=== PATIENT | male | born 1930 | race Caucasian/White ===

== ENCOUNTER 2016-10-05 14:18 | Inpatient (IN) | payer MEDICARE, MEDICAID ==
[2016-10-05] MEDS ORDERED: IPRATROPIUM/ALBUTEROL (0.5MG/3MG) NEB INH ONE (14:49)
[2016-10-05] MEDS ORDERED: METHYLPREDNISOLONE PF 125MG/VIAL IVP ONE (14:49)
--- NOTE | 2016-10-05 14:51 | Emergency Department Record ---
History of Present Illness - General Chief Complaint: Shortness of breath Stated Complaint: SOB,WEAK Time Seen by Provider: 10/05/16 14:47 Source: Patient, RN notes reviewed - Related Data Home Medications Medication Instructions Recorded Confirmed Last Taken Albuterol Sulfate [Ventolin Hfa] 1 - 2 puff IH .EVERY 4-6 HOURS PRN 10/05/16 Unknown Allopurinol [Allopurinol] 300 mg PO DAILY 10/05/16 10/05/16 Unknown Aspirin [Aspirin EC] 325 mg PO DAILY 10/05/16 10/05/16 Unknown Donepezil HCl [Donepezil HCl] 5 mg PO QHS 10/05/16 10/05/16 Unknown Dutasteride [Dutasteride] 0.5 mg PO DAILY 10/05/16 10/05/16 Unknown Ezetimibe [Zetia] 10 mg PO DAILY 10/05/16 10/05/16 Unknown Furosemide [Furosemide] 40 mg PO DAILY 10/05/16 10/05/16 Unknown Levothyroxine Sodium [Synthroid] 75 mcg PO DAILY 10/05/16 10/05/16 Unknown Lisinopril [Zestril] 10 mg PO DAILY 10/05/16 10/05/16 Unknown Mirabegron [Myrbetriq] 50 mg PO DAILY 10/05/16 10/05/16 Unknown Paroxetine HCl [Paroxetine HCl] 20 mg PO DAILY 10/05/16 10/05/16 Unknown Simvastatin [Simvastatin] 40 mg PO DAILY 10/05/16 10/05/16 Unknown Tamsulosin HCl [Tamsulosin HCl] 0.4 mg PO DAILY 10/05/16 10/05/16 Unknown Allergies Allergy/AdvReac Type Severity Reaction Status Date / Time Penicillins Allergy ANAPHYLAXIS Verified 10/05/16 14:55 Medical Decision Making - Lab Data Result diagrams: 10/05/16 15:05 10/05/16 15:05 Disposition Clinical Impression: Bronchitis, COPD (chronic obstructive pulmonary disease) with acute bronchitis , Hypoxia Forms: Patient Portal Access
[2016-10-05 15:19] LABS: HEMATOCRIT 36.1 % (42.0-52.0); HEMOGLOBIN 10.9 gm/dl (14.0-18.0); MEAN CORPUSCULAR HEMOGLOBIN 31.4 pg (27-33); MEAN CORPUSCULAR HGB CONC 30.2 g/dl (32-36); PLATELET COUNT 156 K/uL (130-400); RED BLOOD COUNT 3.47 M/uL (4.40-5.70); RED CELL DISTRIBUTION WIDTH 13.5 % (11.5-14.5); WHITE BLOOD COUNT W/O DIFF 5.6 K/uL (4.2-12.2)
[2016-10-05 15:31] LABS: PLATELET ESTIMATE NORMAL (NORMAL)
[2016-10-05 15:33] LABS: ANION GAP 9.9 (7-16); BLOOD UREA NITROGEN 32 mg/dL (9-20); CARBON DIOXIDE 35.1 mmol/L (22-30); CREATININE 1.1 mg/dL (0.66-1.25); EST GLOMERULAR FILTRATION RATE > 60 ml/min; GLUCOSE,RANDOM 87 mg/dL (70-110)
[2016-10-05 15:35] LABS: INR 1.08; PARTIAL THROMBOPLASTIN TIME 28.9 SECONDS (24.5-39.1); PROTHROMBIN TIME (PATIENT) 12.2 SECONDS (9.5-12.1)
[2016-10-05 15:45] LABS: TROPONIN I 0.067 ng/mL (0.00-0.034)
--- NOTE | 2016-10-05 15:52 | Emergency Department Record ---
History of Present Illness - General Chief Complaint: Shortness of breath Stated Complaint: SOB,WEAK Time Seen by Provider: 10/05/16 14:47 Source: Patient, RN notes reviewed Mode of Arrival: Wheelchair - History of Present Illness Initial Comments: see previous chart. Patient was treated at [facility] for pneumonia and went to rehab and he was requiring oxygen and he went home on monday and they went to the wrong house with the oxygen and he finely got it yesterday. Breathing progressively worse over the last three days and coughing and he went to Dr. Sam's office today and sent to ED SOB with a low BP .Patient has dementia for 3 years and incontient of urine and stool. Patient is DNR Onset/Timin -: Days(s) Consistency: Constant Improves With: Nothing Worsens With: Nothing Context: Recent illness Associated Symptoms: Cough Treatments Prior to Arrival: None - Related Data Home Oxygen Therapy: Yes Home Oxygen Amount: 2 Liters Home Medications Medication Instructions Recorded Confirmed Last Taken Albuterol Sulfate [Ventolin Hfa] 1 - 2 puff IH .EVERY 4-6 HOURS PRN 10/05/16 Unknown Allopurinol [Allopurinol] 300 mg PO DAILY 10/05/16 10/05/16 Unknown Aspirin [Aspirin EC] 325 mg PO DAILY 10/05/16 10/05/16 Unknown Donepezil HCl [Donepezil HCl] 5 mg PO QHS 10/05/16 10/05/16 Unknown Dutasteride [Dutasteride] 0.5 mg PO DAILY 10/05/16 10/05/16 Unknown Ezetimibe [Zetia] 10 mg PO DAILY 10/05/16 10/05/16 Unknown Furosemide [Furosemide] 40 mg PO DAILY 10/05/16 10/05/16 Unknown Levothyroxine Sodium [Synthroid] 75 mcg PO DAILY 10/05/16 10/05/16 Unknown Lisinopril [Zestril] 10 mg PO DAILY 10/05/16 10/05/16 Unknown Mirabegron [Myrbetriq] 50 mg PO DAILY 10/05/16 10/05/16 Unknown Paroxetine HCl [Paroxetine HCl] 20 mg PO DAILY 10/05/16 10/05/16 Unknown Simvastatin [Simvastatin] 40 mg PO DAILY 03/15/17 03/15/17 Unknown Tamsulosin HCl [Tamsulosin HCl] 0.4 mg PO DAILY 10/05/16 10/05/16 Unknown Allergies Allergy/AdvReac Type Severity Reaction Status Date / Time Penicillins Allergy ANAPHYLAXIS Verified 10/05/16 14:55 Travel Screening - Travel/Exposure Within Last 30 Days Have you traveled within the last 30 days?: No Review of Systems Reviewed: No additional complaints except as noted below Constitutional: Reports: As per HPI. Denies: Chills, Fever, Malaise, Night sweats, Weakness, Weight change Eyes: Reports: As per HPI. Denies: Eye discharge, Eye pain, Photophobia, Vision change ENT: Reports: As per HPI, Congestion. Denies: Dental pain, Ear pain, Epistaxis , Hearing loss, Throat pain Respiratory: Reports: As per HPI, Cough. Denies: Dyspnea, Hemoptysis, Stridor, Wheezes Cardiovascular: Reports: As per HPI. Denies: Arrhythmia, Chest pain, Dyspnea on exertion, Edema, Murmurs, Orthopnea, Palpitations, Paroxysmal nocturnal dyspnea, Rheumatic Fever, Syncope Endocrine: Reports: As per HPI. Denies: Fatigue, Heat or cold intolerance, Polydipsia, Polyuria Gastrointestinal: Reports: As per HPI. Denies: Abdominal pain, Constipation, Diarrhea, Hematemesis, Hematochezia, Melena, Nausea, Vomiting Genitourinary: Reports: As per HPI. Denies: Dysuria, Frequency, Hematuria, Incontinence, Retention, Testicular pain, Testicular mass, Urgency Musculoskeletal: Reports: As per HPI. Denies: Arthralgia, Back pain, Gout, Joint swelling, Myalgia, Neck pain Skin: Reports: As per HPI. Denies: Bruising, Change in color, Change in hair/ nails, Lesions, Pruritus, Rash Neurological: Reports: As per HPI. Denies: Abnormal gait, Confusion, Headache, Numbness, Paresthesias, Seizure, Tingling, Tremors, Vertigo, Weakness Psychiatric: Reports: As per HPI. Denies: Anxiety, Auditory hallucinations, Depression, Homicidal thoughts, Suicidal thoughts, Visual hallucinations Hematological/Lymphatic: Reports: As per HPI. Denies: Anemia, Blood Clots, Easy bleeding, Easy bruising, Swollen glands Past Medical History - SOCIAL HISTORY Smoking Status: Former smoker Alcohol Use: None Drug Use: None - RESPIRATORY Hx Respiratory Disorders: Yes Hx Pneumonia: Yes - CARDIOVASCULAR Hx Cardio Disorders: Yes Hx Abnormal EKG: Yes Hx Edema: Yes - NEURO Hx Neuro Disorders: Yes Hx Dementia: Yes Hx TIA: Yes - GI Hx GI Disorders: No - Hx Genitourinary Disorders: Yes Hx Prostate Problems: Yes Comment:: incontinenet - ENDOCRINE Hx Endocrine Disorders: No - MUSCULOSKELETAL Hx Musculoskeletal Disorders: Yes Hx Arthritis: Yes - PSYCH Hx Psych Problems: No - HEMATOLOGY/ONCOLOGY Hx Hematology/Oncology Disorders: No Family Medical History Any Significant Family History?: No Physical Exam - General General Appearance: Alert, Moderate distress - Head Head exam: Normal inspection - Eye Eye exam: Normal appearance, PERRL Pupils: Normal accommodation - ENT ENT exam: Normal exam, Mucous membranes moist, Normal external ear exam, Normal orophraynx, TM's normal bilaterally Ear exam: Normal external inspection. negative: External canal tenderness Nasal Exam: Normal inspection. negative: Discharge, Sinus tenderness Mouth exam: Normal external inspection, Tongue normal Teeth exam: Normal inspection. negative: Dental caries Throat exam: Normal inspection. negative: Tonsillar erythema, Tonsillar exudate - Neck Neck exam: Normal inspection, Full ROM. negative: Tenderness - Respiratory Respiratory exam: Respiratory distress, Wheezes - Cardiovascular Cardiovascular Exam: Regular rate, Normal rhythm, Normal heart sounds - GI/Abdominal GI/Abdominal exam: Soft, Normal bowel sounds. negative: Tenderness - Rectal Rectal exam: Deferred - exam: Deferred - Extremities Extremities exam: Normal inspection, Full ROM, Normal capillary refill. negative: Tenderness - Back Back exam: Reports: Normal inspection, Full ROM. Denies: Muscle spasm, Rash noted, Tenderness - Neurological Neurological exam: Alert, Normal gait, Oriented X3, Reflexes normal - Psychiatric Psychiatric exam: Normal affect, Normal mood - Skin Skin exam: Dry, Intact, Normal color, Warm Course Vital Signs 10/05/16 10/05/16 14:43 14:59 Temperature 97.8 F Pulse Rate 88 94 H Respiratory 21 13 Rate Blood Pressure 87/57 Pulse Ox 88 L 96 - Reevaluation(s) Reevaluation #1: patient is doing better 10/05/16 16:00 10/05/16 16:59 Medical Decision Making - Lab Data Result diagrams: 10/05/16 15:05 10/05/16 15:05 Lab Results 10/05/16 10/05/16 10/05/16 Range/Units 15:05 15:05 15:05 WBC 5.6 (4.2-12.2) K/uL RBC 3.47 L (4.40-5.70) M/uL Hgb 10.9 L (14.0-18.0) gm/dl Hct 36.1 L (42.0-52.0) % MCV 104.0 H (81-97) fl MCH 31.4 (27-33) pg MCHC 30.2 L (32-36) g/dl RDW 13.5 (11.5-14.5) % Plt Count 156 (130-400) K/uL MPV 11.0 H (7.4-10.4) fl Neutrophils % 73.0 (47-80) % Lymphocytes % 12.0 L (16-45) % Monocytes % 13.0 H (0-9) % Eosinophils % 2.0 (0-6) % Basophils % Not Reportable Platelet Estimate Normal (NORMAL) RBC Morphology Normal PT 12.2 H (9.5-12.1) SECONDS INR 1.08 APTT 28.90 (24.5-39.1) SECONDS Sodium 144 (136-145) mmol/L Potassium 4.2 (3.5-5.1) mmol/L Chloride 99 (98-107) mmol/L Carbon Dioxide 35.1 H (22-30) mmol/L Anion Gap 9.9 (7-16) BUN 32 H (9-20) mg/dL Creatinine 1.1 (0.66-1.25) mg/dL Estimated GFR > 60 ml/min Random Glucose 87 (70-110) mg/dL Calcium 8.6 (8.5-10.1) mg/dL Disposition Clinical Impression: Bronchitis, COPD (chronic obstructive pulmonary disease) with acute bronchitis , Hypoxia Decision to Admit: Admit from ER Condition: (2) Stable Forms: Patient Portal Access
[2016-10-05] MEDS ORDERED: CEFTRIAXONE SODIUM 1 GM in 0.9 % SODIUM CHLORIDE 100ML 100 ML IVPB ONE (15:59)
[2016-10-05] MEDS ORDERED: AZITHROMYCIN 500 MG TABLET PO ONE (15:59)
[2016-10-05] MEDS ORDERED: 0.9 % SODIUM CHLORIDE 1000ML 1,000 ML IV ONE (16:59)
[2016-10-05] MEDS ORDERED: ALBUTEROL SULFATE (0.083%) 2.5 MG/3 ML NEB INH PRN (17:01)
[2016-10-05] MEDS ORDERED: METHYLPREDNISOLONE PF 125MG/VIAL IVP SCH (17:15)
[2016-10-05] MEDS ORDERED: ENOXAPARIN 40 MG/0.4 ML SYR SC SCH (17:15)
--- NOTE | 2016-10-05 18:20 | Emergency Department Record ---
History of Present Illness - General Chief Complaint: Shortness of breath Stated Complaint: SOB,WEAK Time Seen by Provider: 10/05/16 14:47 Source: Patient, RN notes reviewed Mode of Arrival: Wheelchair - History of Present Illness Onset/Timin -: Days(s) Consistency: Constant Improves With: Nothing Worsens With: Nothing Context: Recent illness Associated Symptoms: Cough Treatments Prior to Arrival: None - Related Data Home Oxygen Therapy: Yes Home Oxygen Amount: 2 Liters Home Medications Medication Instructions Recorded Confirmed Last Taken Albuterol Sulfate [Ventolin Hfa] 1 - 2 puff IH .EVERY 4-6 HOURS PRN 10/05/16 Unknown Allopurinol [Allopurinol] 300 mg PO DAILY 10/05/16 10/05/16 Unknown Aspirin [Aspirin EC] 325 mg PO DAILY 10/05/16 10/05/16 Unknown Donepezil HCl [Donepezil HCl] 5 mg PO QHS 10/05/16 10/05/16 Unknown Dutasteride [Dutasteride] 0.5 mg PO DAILY 10/05/16 10/05/16 Unknown Ezetimibe [Zetia] 10 mg PO DAILY 10/05/16 10/05/16 Unknown Furosemide [Furosemide] 40 mg PO DAILY 10/05/16 10/05/16 Unknown Levothyroxine Sodium [Synthroid] 75 mcg PO DAILY 10/05/16 10/05/16 Unknown Lisinopril [Zestril] 10 mg PO DAILY 10/05/16 10/05/16 Unknown Mirabegron [Myrbetriq] 50 mg PO DAILY 10/05/16 10/05/16 Unknown Paroxetine HCl [Paroxetine HCl] 20 mg PO DAILY 10/05/16 10/05/16 Unknown Simvastatin [Simvastatin] 40 mg PO DAILY 10/05/16 10/05/16 Unknown Tamsulosin HCl [Tamsulosin HCl] 0.4 mg PO DAILY 10/05/16 10/05/16 Unknown Allergies Allergy/AdvReac Type Severity Reaction Status Date / Time Penicillins Allergy ANAPHYLAXIS Verified 10/05/16 14:55 Travel Screening - Travel/Exposure Within Last 30 Days Have you traveled within the last 30 days?: No Review of Systems Constitutional: Reports: As per HPI. Denies: Chills, Fever, Malaise, Night sweats, Weakness, Weight change Eyes: Reports: As per HPI. Denies: Eye discharge, Eye pain, Photophobia, Vision change ENT: Reports: As per HPI, Congestion. Denies: Dental pain, Ear pain, Epistaxis , Hearing loss, Throat pain Respiratory: Reports: As per HPI, Cough. Denies: Dyspnea, Hemoptysis, Stridor, Wheezes Cardiovascular: Reports: As per HPI. Denies: Arrhythmia, Chest pain, Dyspnea on exertion, Edema, Murmurs, Orthopnea, Palpitations, Paroxysmal nocturnal dyspnea, Rheumatic Fever, Syncope Endocrine: Reports: As per HPI. Denies: Fatigue, Heat or cold intolerance, Polydipsia, Polyuria Gastrointestinal: Reports: As per HPI. Denies: Abdominal pain, Constipation, Diarrhea, Hematemesis, Hematochezia, Melena, Nausea, Vomiting Genitourinary: Reports: As per HPI. Denies: Dysuria, Frequency, Hematuria, Incontinence, Retention, Testicular pain, Testicular mass, Urgency Musculoskeletal: Reports: As per HPI. Denies: Arthralgia, Back pain, Gout, Joint swelling, Myalgia, Neck pain Skin: Reports: As per HPI. Denies: Bruising, Change in color, Change in hair/ nails, Lesions, Pruritus, Rash Neurological: Reports: As per HPI. Denies: Abnormal gait, Confusion, Headache, Numbness, Paresthesias, Seizure, Tingling, Tremors, Vertigo, Weakness Psychiatric: Reports: As per HPI. Denies: Anxiety, Auditory hallucinations, Depression, Homicidal thoughts, Suicidal thoughts, Visual hallucinations Hematological/Lymphatic: Reports: As per HPI. Denies: Anemia, Blood Clots, Easy bleeding, Easy bruising, Swollen glands Past Medical History - SOCIAL HISTORY Smoking Status: Former smoker Alcohol Use: None Drug Use: None - RESPIRATORY Hx Respiratory Disorders: Yes Hx Pneumonia: Yes - CARDIOVASCULAR Hx Cardio Disorders: Yes Hx Abnormal EKG: Yes Hx Edema: Yes - NEURO Hx Neuro Disorders: Yes Hx Dementia: Yes Hx TIA: Yes - GI Hx GI Disorders: No - Hx Genitourinary Disorders: Yes Hx Prostate Problems: Yes Comment:: incontinenet - ENDOCRINE Hx Endocrine Disorders: No - MUSCULOSKELETAL Hx Musculoskeletal Disorders: Yes Hx Arthritis: Yes - PSYCH Hx Psych Problems: No - HEMATOLOGY/ONCOLOGY Hx Hematology/Oncology Disorders: No Family Medical History Any Significant Family History?: No Course Vital Signs 10/05/16 10/05/16 14:43 14:59 Temperature 97.8 F Pulse Rate 88 94 H Respiratory 21 13 Rate Blood Pressure 87/57 Pulse Ox 88 L 96 Medical Decision Making - Lab Data Result diagrams: 10/05/16 15:05 10/05/16 15:05 Lab Results 10/05/16 10/05/16 10/05/16 Range/Units 15:05 15:05 15:05 WBC 5.6 (4.2-12.2) K/uL RBC 3.47 L (4.40-5.70) M/uL Hgb 10.9 L (14.0-18.0) gm/dl Hct 36.1 L (42.0-52.0) % MCV 104.0 H (81-97) fl MCH 31.4 (27-33) pg MCHC 30.2 L (32-36) g/dl RDW 13.5 (11.5-14.5) % Plt Count 156 (130-400) K/uL MPV 11.0 H (7.4-10.4) fl Neutrophils % 73.0 (47-80) % Lymphocytes % 12.0 L (16-45) % Monocytes % 13.0 H (0-9) % Eosinophils % 2.0 (0-6) % Basophils % Not Reportable Platelet Estimate Normal (NORMAL) RBC Morphology Normal PT 12.2 H (9.5-12.1) SECONDS INR 1.08 APTT 28.90 (24.5-39.1) SECONDS Sodium 144 (136-145) mmol/L Potassium 4.2 (3.5-5.1) mmol/L Chloride 99 (98-107) mmol/L Carbon Dioxide 35.1 H (22-30) mmol/L Anion Gap 9.9 (7-16) BUN 32 H (9-20) mg/dL Creatinine 1.1 (0.66-1.25) mg/dL Estimated GFR > 60 ml/min Random Glucose 87 (70-110) mg/dL Calcium 8.6 (8.5-10.1) mg/dL CK-MB (CK-2) 1.0 (0-6) ug/L Troponin I 0.067 H (0.00-0.034) ng/mL NT-Pro-B Natriuret Pep (<450) pg/mL 10/05/16 Range/Units 15:05 WBC (4.2-12.2) K/uL RBC (4.40-5.70) M/uL Hgb (14.0-18.0) gm/dl Hct (42.0-52.0) % MCV (81-97) fl MCH (27-33) pg MCHC (32-36) g/dl RDW (11.5-14.5) % Plt Count (130-400) K/uL MPV (7.4-10.4) fl Neutrophils % (47-80) % Lymphocytes % (16-45) % Monocytes % (0-9) % Eosinophils % (0-6) % Basophils % Platelet Estimate (NORMAL) RBC Morphology PT (9.5-12.1) SECONDS INR APTT (24.5-39.1) SECONDS Sodium (136-145) mmol/L Potassium (3.5-5.1) mmol/L Chloride (98-107) mmol/L Carbon Dioxide (22-30) mmol/L Anion Gap (7-16) BUN (9-20) mg/dL Creatinine (0.66-1.25) mg/dL Estimated GFR ml/min Random Glucose (70-110) mg/dL Calcium (8.5-10.1) mg/dL CK-MB (CK-2) (0-6) ug/L Troponin I (0.00-0.034) ng/mL NT-Pro-B Natriuret Pep 7320.00 H (<450) pg/mL Disposition Clinical Impression: Bronchitis, COPD (chronic obstructive pulmonary disease) with acute bronchitis , Hypoxia Atrial Fibrillation Qualifiers: Atrial fibrillation type: unspecified Qualified Code(s): I48.91 - Unspecified atrial fibrillation Decision to Admit: Admit from ER Condition: (2) Stable Forms: Patient Portal Access
[2016-10-05] MEDS: IPRATROPIUM/ALBUTEROL (0.5MG/3MG) NEB INH SCH ×2 (18:58→22:18)
[2016-10-05] MEDS: CEFTRIAXONE SODIUM 1 GM in 0.9 % SODIUM CHLORIDE 100ML 100 ML IVPB SCH (20:41)
[2016-10-05] MEDS: DONEPEZIL HCL 5 MG TABLET PO SCH (22:55)
[2016-10-06] MEDS: CEFTRIAXONE SODIUM 1 GM in 0.9 % SODIUM CHLORIDE 100ML 100 ML IVPB SCH ×2 (05:31→17:33)
[2016-10-06] MEDS: IPRATROPIUM/ALBUTEROL (0.5MG/3MG) NEB INH SCH ×5 (05:45→22:05)
[2016-10-06] MEDS: METHYLPREDNISOLONE PF 125MG/VIAL IVP SCH ×3 (06:54→23:35)
--- NOTE | 2016-10-06 07:30 | RADIOLOGY REPORT ---
EXAM: PORTABLE CHEST HISTORY: DIFFICULTY BREATHING. TECHNIQUE: A portable semi-erect view of the chest was obtained. Comparison: None. FINDINGS: Cardiomegaly with atheromatous change of the thoracic aorta. Sternotomy wires. The lungs are clear. No pneumothorax. IMPRESSION: CARDIOMEGALY. THE LUNGS ARE CLEAR. JOB NUMBER: [id number] MTDD
[2016-10-06] MEDS: ALLOPURINOL 100 MG TAB PO SCH (10:22)
[2016-10-06] MEDS: EZETIMIBE 10 MG TABLET PO SCH (10:23)
[2016-10-06] MEDS: TAMSULOSIN HCL 0.4 MG CAP.ER.24H PO SCH (10:23)
[2016-10-06] MEDS: AZITHROMYCIN 500 MG TABLET PO SCH (10:24)
[2016-10-06] MEDS: ENOXAPARIN 30 MG/0.3 ML SYR SQ SCH (10:24)
[2016-10-06] MEDS: LEVOTHYROXINE SODIUM 75 MCG TABLET PO SCH (10:24)
[2016-10-06] MEDS ORDERED: 0.9 % SODIUM CHLORIDE 1000ML 1,000 ML IV ONE (12:49)
[2016-10-06] MEDS: DUTASTERIDE 0.5 MG PO SCH (13:15)
[2016-10-06] MEDS: MYRBETRIQ 50 MG PO SCH (13:16)
[2016-10-06] MEDS: ASPIRIN 325 MG TAB ENTERIC-COATED PO SCH (13:42)
[2016-10-06] MEDS ORDERED: ZINC OXIDE 28.35 GM TUBE TOP PRN (15:41)
--- NOTE | 2016-10-06 16:57 | History and Physical Report ---
DATE OF ADMISSION: 10/06/16 at 12:45 p.m. CHIEF COMPLAINT: DYSPNEA. HISTORY OF PRESENT ILLNESS: This 86-year-old male presented to Dr. Sam's office because of follow-up from rehab. He was discharged from the rehab center on Monday. Four days prior, he was very short of breath. There was some confusion on the oxygen. He was on oxygen at the rehab doing fairly well. According to the family, when the outpatient oxygen was ordered the jose had the wrong address, could not find his address to deliver it. It took two days to get the oxygen and he progressively got worse. He was more short of breath, memory issues have been worse, and he is weaker. He was in the wheelchair moaning, confused, and his dementia is much worse. He was brought over to the Emergency Department by cecilia from Dr. Sam's office and I evaluated him and he was wheezing in all lung juan. He was having a flare-up of his COPD. He also has underlying congestive heart failure. His chest x-ray did not show any signs of pulmonary vascular congestion but he did have cardiomegaly and he has an aortic valve replacement, which was done many years ago. He has a pig valve. The patient was admitted to the hospital for bronchitis, COPD exacerbation, atrial fibrillation new onset, severe weakness, and dementia. MEDICATIONS ON ADMISSION: Aspirin 325 every day Allopurinol 300 mg every day Ventolin two puffs every four hours prn Lasix 40 mg every day Zetia 10 mg every day Dutasteride 500 mg every day Aricept 5 mg every h.s. Simvastatin 40 mg every h.s. Paxil 20 mg every day Myrbetriq 50 mg every day Lisinopril 10 mg every day Levothyroxine 75 mcg every day Flomax 0.4 mg every day ALLERGIES: PENICILLIN. FAMILY/PSYCHOSOCIAL HISTORY: Unremarkable. He is a former smoker. No alcohol or drug use. REVIEW OF SYSTEMS: HEENT: Was all obtained from the family. He was doing much better at the rehab center. He was actually riding a stationary bicycle towards the end of his rehab treatment program but he progressively has gotten worse over the last four days that he has been home. He is wheezing. He has congestion and coughing. Moaning. The family is having a hard time taking care of him. CARDIOVASCULAR: Denies chest pain but it is hard to get a history from him. He is short of breath and wheezing. RESPIRATORY: He has COPD and CHF in the past. He is an ex-smoker. Sleep disorders requiring oxygen and he was without oxygen for the last two of the four days he was home. GASTROINTESTINAL: No nausea, vomiting, diarrhea, or black stools. GENITOURINARY: He is incontinent of urine and stool. He wears a Depends. MUSCULOSKELETAL: He has arthritis. NEUROLOGIC: He has had a stroke in the past in 2010. It was a TIA- type stroke. He has dementia for approximately four years. ENDOCRINE: No diabetes. He has hypothyroidism. INTEGUMENT: No rash, change in moles, or yellow skin. PHYSICAL EXAMINATION: GENERAL: Height is 5'2". Weight is 245 lb. VITAL SIGNS: Temperature is 98.1. Pulse is 75, irregular. Blood pressure is 119/ 59. Respiratory rate is 20. Pulse ox is 91% on 2 liters of nasal cannula. He is very short of breath if he moves around. HEENT: Pupils equal, round, and reactive to light and accommodation. Extraocular muscles are intact. Throat dry. Mucous membranes; no lesions noted. NECK: Neck is supple. No jugular venous distention. No hepatojugular reflux. No carotid bruits. Thyroid smooth. CARDIOVASCULAR: Irregular rate and rhythm with a murmur. He has an aortic valve replacement, pig valve. RESPIRATORY: Wheezing in all lung juan. ABDOMEN: Soft and distended but no pain on palpation. No rebound or rigidity. EXTREMITIES: No pitting edema. JOINTS: He has tenderness when you move his joints. He does sit up with two- person assist. RECTAL: Deferred. BREAST EXAM: Normal male breasts. GENITALIA: Normal male genitalia. NEUROLOGICAL EXAM: Cranial nerves II through XII are grossly intact. Sensation is intact bilaterally. He is moving all four extremities. Deep tendon reflexes are equal bilaterally. He has dementia and is confused. Unable to obtain history from mental status. He is disoriented to time and place but not person. He is not alert but lethargic. SKIN: No rashes or ulcerations noted. His diaper area is reddened from being incontinent of urine and stool. IMPRESSION: 1. ACUTE BRONCHITIS. 2. EXACERBATION OF COPD. 3. NEW ONSET ATRIAL FIBRILLATION. 4. INCREASED TROPONIN-I IN THE INDETERMINATE RANGE. 5. HISTORY OF AORTIC VALVE REPLACEMENT, PIG VALVE, MANY YEARS AGO. 6. HISTORY OF CORONARY ARTERY BYPASS GRAFTING, TRIPLE BYPASS MANY YEARS AGO. 7. HYPOTHYROIDISM. 8. HYPERCHOLESTEROLEMIA. 9. CORONARY ARTERY DISEASE. 10. ARTHRITIS. 11. HYPERTENSION. 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 13. HISTORY OF GOUT. 14. DEPRESSION. PLAN: IV Rocephin 1 gm every 12 hours. Azithromycin 500 mg orally every day. Breathing treatments with DuoNeb every four hours while awake. Albuterol 2 hours prn. Solu-Medrol 60 mg every 8 hours. Continue his daily medications. Lovenox for subcut prophylaxis, however, I am very concerned about putting him on anticoagulants for his new onset atrial fibrillation because of his comorbid condition. I think this might be a high risk for complications. Ortiz Lima D.O. Date & Time JOB NUMBER: [id number] MTDD
[2016-10-06] MEDS ORDERED: FUROSEMIDE IV 20MG/2ML VIAL IVP ONE (16:58)
[2016-10-06] MEDS: DONEPEZIL HCL 5 MG TABLET PO SCH (22:22)
[2016-10-07] MEDS: CEFTRIAXONE SODIUM 1 GM in 0.9 % SODIUM CHLORIDE 100ML 100 ML IVPB SCH ×2 (05:02→19:46)
[2016-10-07] MEDS: IPRATROPIUM/ALBUTEROL (0.5MG/3MG) NEB INH SCH ×5 (05:59→22:06)
[2016-10-07] MEDS: METHYLPREDNISOLONE PF 125MG/VIAL IVP SCH ×2 (06:05→17:20)
[2016-10-07] MEDS: LEVOTHYROXINE SODIUM 75 MCG TABLET PO SCH (06:05)
--- NOTE | 2016-10-07 09:46 | Rehab Evaluation ---
Patient Information - Patient Information Diagnosis: Bronchitis, COPD Ordered Treatment: PT Evaluate and Treat Status: Initial Evaluation History: Detail (The patient pesented to ED on 10/05/16 with complaints of difficulty breathing. The patient was previously at [facility] for treatment for pneumonia and for Rehab. The patient was discharged from [facility] last Monday. The patient was admitted to [facility] inpatient floor on 10/05/16.) Past Medical/Surgical Hx: PAST MEDICAL/SURGICAL HISTORY Past Surgical History valve replacement bypass knee x2 hip PMH - Respiratory Hx Respiratory Disorders Yes Hx Pneumonia Yes PMH - Cardiovascular Hx Cardiovascular Disorders Yes Hx Abnormal EKG Yes Hx Edema Yes Hx Transient Ischemic Attacks Yes (TIA) PMH - Neuro Hx Neurological Disorders Yes Hx Dementia Yes Hx Transient Ischemic Attacks Yes (TIA) PMH - GI Hx Gastrointestinal Disorders No PMH - Hx Genitourinary Disorders Yes Hx Prostate Problems Yes Comment: incontinenet PMH - Endocrine Hx Endocrine Disorders No PMH - Musculoskeletal Hx Musculoskeletal Disorders Yes Hx Arthritis Yes PMH - Psych Hx Psychiatric Problems No PMH - Hematology/Oncology Hx Hematology/Oncology No Disorders Premorbid Status: Detail (The patient was ambulatory with wheeled walker per his report.) Social History: Detail (The patient lives with daughter in 1 story home with a ramped enterance per his report. The bathroom has a shower stall with a seat, standard toilet and grab bars. The patient has a wheeled walker and O2 at home. The patient states his daughter assisted him with ADL's.) Precautions: [place], Fall - Time With Patient Total Time Spent With Patient (Min): 30 Treatment Procedures: Detail (Initial Evaluation) Subjective Information - Subjective Information Per Patient (The patient had no complaints of pain. The patient exhibited incoherent, mumbling speech at times.) Objective Data - Mental Status Patient Orientation: Person (The patient stated he was in a hospital, knew month of his birthday but not year or age. The patient did not know current month or year.) - ROM Within normal limits (The patient's LE AROM is WNL. Refer to OT note for UE AROM.) - Strength/Tone Not within normal limits (The patient's LE strength was functional, the patient did not understand use of resistance for manual muscle testing. Refer to OT for UE strength grades.) - Bed Mobility Independent (The patient achieved supine to sit transfer indepedently.) - Transfers Needs Assist (The patient required supervision for safety only with sit to stand. The patient moves impulsively.) - Balance Balance Sitting: Good Balance Standing: Fair (The patient was able to stand without support, pulling down his pants. Supervision for safety was required.) - Gait Detail (The patient ambulated with wheeled walker and 2 L of O2 from bed to chair, 5 feetx1 with supervision for safety. The patient exhibited wheezy breathing throughout activity ie: ambulation, transfers, strength testing etc.) Therapy Assessment - Therapy Assessment Detail (The patient requires supervision for safety with mobility and ambulation. The patient has wheezy breathing and shortness of breath with all physical activity. The patient had decreased ability to complete sustained physical activity. The patient would benefit from ongoing PT upon discharge from [facility] to return to previous functional level.) Problem List - Problem List Physical Therapy Problem List: Detail (1) Shortness of breath with activity and decreased ability to complete sustained physical activity. 2) Supervision with mobility and ambulation 3) Mentation 3)) Goals - Goals Physical Therapy Goals: 1) The patient will tolerate 30 minutes of physical activity with minimal to no shortness of breath. 2) Independent to supervision with ambulation with wheeled walker a distance of 100 feet plus. 3) Consistant independence/supervision with all bed mobility and transfers. Prognosis - Prognosis Good (Good to return to previous functional level.) Plan - Plan Physical Therapy Plan: PT once daily until discharge from [facility] for gait training , transfer training and bed mobility, LE strengthening and balance exercises.
[2016-10-07] MEDS ORDERED: FUROSEMIDE IV 20MG/2ML VIAL IVP SCH (10:00)
--- NOTE | 2016-10-07 10:07 | Rehab Evaluation ---
Patient Information - Patient Information Diagnosis: Bronchitis, COPD Ordered Treatment: OT Evaluate and Treat Status: Initial Evaluation History: Detail (The patient presented to ED on 10/05/16 with complaints of difficulty breathing. The patient was previously at [facility] for treatment for pneumonia and for Rehab. The patient was discharged from [facility] last Monday. The patient was admitted to [facility] inpatient floor on 10/05/16.) Past Medical/Surgical Hx: PAST MEDICAL/SURGICAL HISTORY Past Surgical History valve replacement bypass knee x2 hip PMH - Respiratory Hx Respiratory Disorders Yes Hx Pneumonia Yes PMH - Cardiovascular Hx Cardiovascular Disorders Yes Hx Abnormal EKG Yes Hx Edema Yes Hx Transient Ischemic Attacks Yes (TIA) PMH - Neuro Hx Neurological Disorders Yes Hx Dementia Yes Hx Transient Ischemic Attacks Yes (TIA) PMH - GI Hx Gastrointestinal Disorders No PMH - Hx Genitourinary Disorders Yes Hx Prostate Problems Yes Comment: incontinenet PMH - Endocrine Hx Endocrine Disorders No PMH - Musculoskeletal Hx Musculoskeletal Disorders Yes Hx Arthritis Yes PMH - Psych Hx Psychiatric Problems No PMH - Hematology/Oncology Hx Hematology/Oncology No Disorders Premorbid Status: Detail (The patient was ambulatory with wheeled walker per his report.) Social History: Detail (The patient lives with daughter in 1 story home with a ramped entrance per his report. The bathroom has a shower stall with a seat, standard toilet and grab bars. The patient has a wheeled walker and O2 at home. The patient states his daughter assisted him with ADL's.) Precautions: [place], Fall, Other (DNR) - Time With Patient Total Time Spent With Patient (Min): 45 Treatment Procedures: Detail (OT eval-moderate complexity) Subjective Information - Subjective Information Per Patient Objective Data - Pain Pain Present: No - Mental Status Patient Orientation: Person, Place (Pt oriented to self, month/day of birthday, states age as "85" and month as "April". Pt displays some confusion following directions throughout the evaluation.) - Visual Perception Appears within normal limits for therapeutic activities (Pt wears glasses at all times.) - ROM Not within normal limits (Tahir UE AROM limited to approx. 90 degrees shoulder flexion; elbow, wrist and hand AROM functional.) - Strength/Tone Not within normal limits (Tahir UE MMT grossly 4/5 throughout, within AROM limitations.) - Coordination Appears within normal limits for therapeutic activities - Bed Mobility Independent (Ind with supine to sit.) - Transfers Needs Assist (SBA for sit to stand to walker from EOB.) - Balance Balance Sitting: Good Balance Standing: Fair - Sensation Intact - Gait Detail (Pt ambulated several feet with walker and SBA.) - ADL's/IADL's Detail (Pt required mod assist to doff soiled briefs and donned clean briefs with max assist to start over feet. He was able to stand and pullman car repairer hips with min assist. Other ADLs not formally assessed at this time.) Therapy Assessment - Therapy Assessment Detail (Pt presents with significant shortness of breath and fatigue with all activity, decreased UE strength/endurance, decreased Ind with self care activities.) Problem List - Problem List Occupational Therapy Problem List: Detail (1. Decreased Ind with self care activities 2. Decreased endurance needed for safe and Ind ADLs 3. Decreased UE functional status) Goals - Goals Occupational Therapy Goals: 1. Pt will be Ind with upper body dressing 2. Pt will tolerate self care activities with a 50% decrease in shortness of breath/ fatigue. Prognosis - Prognosis Good, Moderate Plan - Plan Occupational Therapy Plan: OT 2-4 days per week to address overall endurance, UE function, self care activities and functional mobility needed for ADLs. Pt would benefit from continued OT.
[2016-10-07] MEDS: MYRBETRIQ 50 MG PO SCH (10:46)
[2016-10-07] MEDS: DUTASTERIDE 0.5 MG PO SCH (10:46)
[2016-10-07] MEDS: ALLOPURINOL 100 MG TAB PO SCH (11:05)
[2016-10-07] MEDS: AZITHROMYCIN 500 MG TABLET PO SCH (11:06)
[2016-10-07] MEDS: EZETIMIBE 10 MG TABLET PO SCH (11:07)
[2016-10-07] MEDS: ASPIRIN 325 MG TAB ENTERIC-COATED PO SCH (11:07)
[2016-10-07] MEDS: TAMSULOSIN HCL 0.4 MG CAP.ER.24H PO SCH (11:07)
[2016-10-07] MEDS: ENOXAPARIN 30 MG/0.3 ML SYR SQ SCH (11:09)
[2016-10-07] MEDS: DONEPEZIL HCL 5 MG TABLET PO SCH (21:54)
[2016-10-08] MEDS: IPRATROPIUM/ALBUTEROL (0.5MG/3MG) NEB INH SCH ×6 (02:04→22:51)
[2016-10-08] MEDS: METHYLPREDNISOLONE PF 125MG/VIAL IVP SCH ×2 (07:19)
[2016-10-08] MEDS: CEFTRIAXONE SODIUM 1 GM in 0.9 % SODIUM CHLORIDE 100ML 100 ML IVPB SCH ×2 (07:21→18:57)
[2016-10-08] MEDS: EZETIMIBE 10 MG TABLET PO SCH (13:09)
[2016-10-08] MEDS: ENOXAPARIN 30 MG/0.3 ML SYR SQ SCH (13:10)
[2016-10-08] MEDS: AZITHROMYCIN 500 MG TABLET PO SCH (13:10)
[2016-10-08] MEDS: ALLOPURINOL 100 MG TAB PO SCH (13:10)
[2016-10-08] MEDS: LEVOTHYROXINE SODIUM 75 MCG TABLET PO SCH (13:10)
[2016-10-08] MEDS: ASPIRIN 325 MG TAB ENTERIC-COATED PO SCH (13:10)
[2016-10-08] MEDS: TAMSULOSIN HCL 0.4 MG CAP.ER.24H PO SCH (13:11)
[2016-10-08] MEDS: DUTASTERIDE 0.5 MG PO SCH (13:13)
[2016-10-08] MEDS: MYRBETRIQ 50 MG PO SCH (13:13)
[2016-10-08] MEDS: LORAZEPAM 0.5 MG TABLET PO PRN (13:45)
[2016-10-08] MEDS: PREDNISONE 10 MG TAB PO SCH (19:03)
[2016-10-08] MEDS: PREDNISONE 20 MG TAB PO SCH (19:04)
[2016-10-08] MEDS: DONEPEZIL HCL 5 MG TABLET PO SCH (23:17)
[2016-10-09] MEDS: LORAZEPAM 0.5 MG TABLET PO PRN ×3 (00:01→20:12)
[2016-10-09] MEDS: IPRATROPIUM/ALBUTEROL (0.5MG/3MG) NEB INH SCH ×5 (05:53→22:00)
[2016-10-09] MEDS: CEFTRIAXONE SODIUM 1 GM in 0.9 % SODIUM CHLORIDE 100ML 100 ML IVPB SCH ×2 (05:55→18:09)
[2016-10-09 06:17] LABS: HEMATOCRIT 31.9 % (42.0-52.0); HEMOGLOBIN 9.9 gm/dl (14.0-18.0); MEAN CELL VOLUME 100.6 fl (81-97); MEAN CORPUSCULAR HEMOGLOBIN 31.2 pg (27-33); MEAN PLATELET VOLUME 11.3 fl (7.4-10.4); PLATELET COUNT 178 K/uL (130-400); RED BLOOD COUNT 3.17 M/uL (4.40-5.70); RED CELL DISTRIBUTION WIDTH 13.3 % (11.5-14.5); WHITE BLOOD COUNT W/O DIFF 15.2 K/uL (4.2-12.2)
[2016-10-09 06:27] LABS: ANION GAP 9.2 (7-16); BLOOD UREA NITROGEN 53 mg/dL (9-20); CARBON DIOXIDE 29.8 mmol/L (22-30); CREATININE 1.1 mg/dL (0.66-1.25); EST GLOMERULAR FILTRATION RATE > 60 ml/min; GLUCOSE,RANDOM 137 mg/dL (70-110)
[2016-10-09 06:28] LABS: PLATELET ESTIMATE NORMAL (NORMAL)
[2016-10-09] MEDS: LEVOTHYROXINE SODIUM 75 MCG TABLET PO SCH (06:41)
[2016-10-09] MEDS: PREDNISONE 10 MG TAB PO SCH (08:20)
[2016-10-09] MEDS: ENOXAPARIN 30 MG/0.3 ML SYR SQ SCH (11:43)
[2016-10-09] MEDS: PREDNISONE 20 MG TAB PO SCH ×2 (11:43→18:10)
[2016-10-09] MEDS: ASPIRIN 325 MG TAB ENTERIC-COATED PO SCH (11:43)
[2016-10-09] MEDS: AZITHROMYCIN 500 MG TABLET PO SCH (11:43)
[2016-10-09] MEDS: DUTASTERIDE 0.5 MG PO SCH (11:43)
[2016-10-09] MEDS: TAMSULOSIN HCL 0.4 MG CAP.ER.24H PO SCH (11:43)
[2016-10-09] MEDS: MYRBETRIQ 50 MG PO SCH (11:44)
[2016-10-09] MEDS: EZETIMIBE 10 MG TABLET PO SCH (11:44)
[2016-10-09] MEDS: ALLOPURINOL 100 MG TAB PO SCH (11:44)
[2016-10-09] MEDS: DONEPEZIL HCL 5 MG TABLET PO SCH (21:36)
[2016-10-10] MEDS: CEFTRIAXONE SODIUM 1 GM in 0.9 % SODIUM CHLORIDE 100ML 100 ML IVPB SCH (05:48)
[2016-10-10] MEDS: LEVOTHYROXINE SODIUM 75 MCG TABLET PO SCH (06:04)
[2016-10-10] MEDS: IPRATROPIUM/ALBUTEROL (0.5MG/3MG) NEB INH SCH ×2 (06:55→09:12)
--- NOTE | 2016-10-10 08:00 | Discharge Note ---
Discharge Note - Date Date of Discharge Note: 10/10/16 Disposition: [facility] Condition: (2) Stable Additional Instructions: follow up with Dr. Sam if he leaves shelter care. Activity up with two person assist and basically stands pivots and sits down home oxygen 3 liter per minute nasal canula 2000 ml fluid restriction Prescriptions: Aspirin [Aspir-Low] 81 mg PO DAILY #30 tablet. Lorazepam [Ativan] 0.5 mg PO Q6H PRN #30 tablet PRN Reason: Agitation Prednisone [Prednisone 10Mg] 10 mg PO ASDIR #30 tab Azithromycin [Zithromax] 500 mg PO DAILY #7 tab Forms: Patient Portal Access Activity at Discharge: Increase Activity as Tolerated Diet at Discharge: Low Salt Diet, Other (2000 ml fluid restriction)
[2016-10-10] MEDS: ENOXAPARIN 30 MG/0.3 ML SYR SQ SCH (09:56)
[2016-10-10] MEDS: TAMSULOSIN HCL 0.4 MG CAP.ER.24H PO SCH (09:56)
[2016-10-10] MEDS: ASPIRIN 325 MG TAB ENTERIC-COATED PO SCH (09:56)
[2016-10-10] MEDS: EZETIMIBE 10 MG TABLET PO SCH (09:57)
[2016-10-10] MEDS: AZITHROMYCIN 500 MG TABLET PO SCH (09:57)
[2016-10-10] MEDS: PREDNISONE 20 MG TAB PO SCH (09:57)
[2016-10-10] MEDS: ALLOPURINOL 100 MG TAB PO SCH (09:59)
--- NOTE | 2016-10-10 10:18 | Discharge Summary ---
DATE OF DISCHARGE: 10/10/2016. DISCHARGE DIAGNOSES: 1. Bronchitis. 2. Acute exacerbation of chronic obstructive pulmonary disease. 3. Atrial fibrillation, new. No anticoagulation because of risk of falls and comorbid condition. Aspirin 81 mg q. daily will be given. 4. Dementia for four to five years. He is a do not resuscitate patient. 5. 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 6. A history of coronary artery bypass grafting, triple bypass many years ago. 7. A history of hypothyroidism. 8. A history of hypercholesterolemia. 9. A history of coronary artery disease. 10. Arthritis. 11. Hypertension. 12. Prostatic hyperplasia. 13. A history of gout. 14. Depression. 15. A history of congestive heart failure. ATTENDING PHYSICIAN: Ortiz Lima D.O. REASON FOR HOSPITALIZATION: Dyspnea. HISTORY OF THE PRESENT ILLNESS: This 86-year-old female presented to Dr. Sam' s office for follow up following his discharge from rehabilitation four days prior. He was very short of breath, wheezing, having a hard time, and confused. There was a problem with setting up the home oxygen. It took them two to three days to get it set up. He has been home only four days from the rehabilitation. At this point Dr. Sam felt he was too unstable to send back home. He sent him to the emergency department for evaluation. He was evaluated by myself. He was requiring oxygen and was wheezing in all lung juan. He was admitted for acute exacerbation of bronchitis, chronic obstructive pulmonary disease exacerbation, and severe dementia. He is a do not resuscitate patient. He had new onset of atrial fibrillation also during this admission when he came into the emergency department. SIGNIFICANT FINDINGS FROM EXAMINATION: LABORATORY DATA: White blood cell count was 5,600, hemoglobin was 10.9 when he came in to the emergency department. His white count went up to 15,200 because of intravenous Solu Medrol. His hemoglobin was 9.9 on the last complete blood count done prior to discharge. His potassium was 4.5. Sodium was 137, chloride was 98. BUN was 53 and creatinine was 1.1. I have stopped the Lasix because he is getting dry and the BUN is going up. Random sugar is 137. Calcium is 8.8. His brain natriuretic peptide was elevated to 7,320. DIAGNOSTIC DATA: EKG showed atrial fibrillation; the rate is controlled. No acute ST T-wave changes. Troponin was indeterminately elevated. CKMB was normal. Chest x-ray showed no acute infiltrates in the lungs. THERAPY PROVIDED: The patient was given oxygen therapy, breathing treatments, intravenous Solu Medrol, intravenous Rocephin, and azithromycin. He was switched over to oral prednisone. On discharge he will be going home with 30 mg of prednisone a day for three days and tapering down to 20 mg a day for three days and 10 mg a day for three days. His wheezing is still present. It seems to be stabilized. He mostly wheezes when he gets anxious or when he moves around. He is eating. His mental status is about what it normally is. He is confused. He hollers out and requires a lot of attention from the staff. CONSULTATION: Cardiology. They agree with not anticoagulating him because of his comorbid conditions, risk for falling, and his risk for bleeding. CONDITION AT DISCHARGE: The patient has improved, but his condition is still guarded because of his comorbid conditions and the underlying baseline chronic obstructive pulmonary disease causes him to wheeze most of the time. He requires oxygen at three liters per minute by nasal cannula, but he has stabilized at this level. He is a do not resuscitate patient. DISCHARGE INSTRUCTIONS: Follow up with Dr. Sam after he leaves the longterm. He will most likely need long-term nursing as I am sure the family cannot take care of him. They had him home for four days and were panicking with his status. He should follow up with the longterm doctor while he is in the longterm. Activity with two-person assist to get him up to move him from the bed to the chair. DISCHARGE MEDICATIONS: 1. Azithromycin 500 mg q. daily times seven days. 2. Prednisone 10 mg. Start out with four pills a day for three days, and then three pills a day for three days and then two pills a day for three days, and then one pill a day for three days. 3. DuoNeb four times a day. 4. Aricept 5.0 mg q. daily. 5. Ecotrin 81 mg q. daily. 6. Flomax 0.4 mg q. daily. 7. Dutasteride 0.5 mg q. daily. 8. Myrbetriq 50 mg one q. daily. 9. Synthroid 75 mcg q. daily. 10. Zetia 10 mg q. daily. 11. Zyloprim 300 mg q. daily. 12. Ativan 0.5 mg q. six hours p.r.n. agitation. 13. Desitin p.r.n. 14. Lisinopril 10 mg one q. daily. ADDENDUM: He is on home oxygen at three liters per minute per nasal cannula. Ortiz Lima D.O. Date Time JOB NUMBER: [id number] MTDD
--- NOTE | 2016-10-10 15:01 | Medical Records Consult ---
HISTORY OF PRESENT ILLNESS: I was asked to see Mr. Sanchez with a chief complaint of recent onset atrial fibrillation. He is an 86-year-old demented white male who has severe chronic obstructive pulmonary disease and is on continuous oxygen at home. He has had multiple admissions for his chronic obstructive pulmonary disease with exacerbation. He has been followed in our office by Dr. Dey and most recently in the congestive heart failure clinic for diastolic heart failure. He has normal systolic function. He was last seen there in September, and the recommendation was for sodium restriction and continued Lasix. He was evaluated by Dr. Sam yesterday because of increasing shortness of breath. He was audibly wheezing and was admitted for exacerbation of chronic obstructive pulmonary disease. The patient really cannot give any history whatsoever. Although he is alert, he is severely demented. The patient also has a history of remote bypass surgery and has mild aortic insufficiency on echocardiogram. MEDICATIONS UPON ADMISSION: Aspirin 325 mg a day, allopurinol 300 mg a day, Ventolin inhaler 2 puffs q. four hours, Lasix 40 mg a day, Zetia 10 mg a day, dutasteride 500 mg a day, Aricept 5.0 mg q.h.s., simvastatin 40 mg q. day, Paxil 20 mg a day, Myrbetriq 50 mg a day, lisinopril 10 mg a day, levothyroxine 75 mcg a day, Flomax 0.4 mg a day. ALLERGIES: Penicillin. FAMILY HISTORY, SOCIAL HISTORY, AND FAMILY HISTORY: Family history is unremarkable. The patient is a former smoker. REVIEW OF SYSTEMS: Unobtainable. PHYSICAL EXAMINATION: Vital Signs: Temperature is 98.1. Pulse is 75 and slightly irregular. Blood pressure 120/60. General: A severely obese white male with audible wheezing. Alert but disoriented to place and time. In no acute distress. HEENT: Normocephalic, atraumatic. Pupils are equal, round, and reactive to light and accommodation. EOMs are intact. The lid conjunctivae and sclerae are clear. Buccal mucosa is pink and moist. Neck: The neck is very thick. There are no obvious bruit, but there are a fair amount of adventitious sounds from his very loud lung wheezing. Chest: Increased AP diameter. Nontender. Diffuse wheezes throughout with decreased breath sounds in the bases. Cardiovascular: Very distant heart sounds. Irregularly irregular. No obvious gallops or murmurs are noted. PMI is nonpalpable. Abdomen: The abdomen is grossly obese and nontender. No gross hepatosplenomegaly. Genital Rectal: Deferred. Extremities: There is slight edema of the lower extremities. There is no cyanosis or clubbing. DIAGNOSTIC DATA: EKG shows atrial fibrillation with a controlled response. No acute changes. LABORATORY DATA OF SIGNIFICANCE: Troponin is 0.067; in the indeterminate range. Hemoglobin is 10. BUN is 32 and creatinine is 1.1. IMPRESSIONS: 1. Severe chronic obstructive pulmonary disease with recurrence. 2. A history of diastolic heart failure. 3. New onset atrial fibrillation, rate controlled. 4. Indeterminate troponin. 5. A history of remote bypass surgery and mild prosthetic aortic valve replacement with some residual aortic insufficiency. 6. Dyslipidemia. 7. Hypertension. PLAN: I think the patient's primary problem is chronic obstructive pulmonary disease and possibly pneumonia. I really do not think he is in a whole lot of systolic heart failure. I would recommend continuing him on his current dose of Lasix. As far as his atrial fibrillation is concerned, the rate is controlled. He is too high risk to be put on full anticoagulation. Lei Valle M.D. Date Time Job Number: [id number] MTDD
== END 2016-10-10 10:30 | DRG 191 ==
LOC: ER 14:18 → MEDSURG 19:42
PROVIDERS: ADMIT Emergency Medicine; ATTEND Emergency Medicine
DX: J44.0 Chronic obstructive pulmonary disease with (acute) lower respiratory infection (principal); I25.810 Atherosclerosis of coronary artery bypass graft(s) without angina pectoris; J20.9 Acute bronchitis, unspecified; F03.90 Unspecified dementia, unspecified severity, without behavioral disturbance, psychotic disturbance, mood disturbance, and anxiety; J44.1 Chronic obstructive pulmonary disease with (acute) exacerbation; I48.0 Paroxysmal atrial fibrillation; Z95.2 Presence of prosthetic heart valve; E03.9 Hypothyroidism, unspecified; E78.00 Pure hypercholesterolemia, unspecified; I10 Essential (primary) hypertension; N40.0 Benign prostatic hyperplasia without lower urinary tract symptoms; M10.9 Gout, unspecified; I50.9 Heart failure, unspecified; Z66 Do not resuscitate
CPT/HCPCS: 71010; 80048; 82553; 83880; 84484; 85027; 85610; 85730; 93005; 93010; 94640; 94760; 94761; 96365; 96375; 97166; 99223; 99233; 99239; 99285; J1650; J1940; J2930; J7512; J7613